=== PATIENT | female | born 1990 | race Caucasian/White ===

== ENCOUNTER 2019-03-30 00:12 | Inpatient (IN) | payer OTHER ==
[~2019-03-30] VITALS: Ht 175.3 cm; Wt 100.0 kg
[~2019-03-30 00:12] MED LIST: PRENATA CHEWAB1 EACH PO; VITAMIN B COMP1 EACH PO
[2019-03-30] MEDS ORDERED: IRON 100 PLUS1 EACH PO (00:50)
--- NOTE | 2019-03-30 10:18 | PR ---
[facility] [address] [facility] [place] [facility] [place], [place] [address] Signed Progress Notes IP Datetime Report Generated by CPN: 03/30/2019 10:18 PROGRESS NOTES: [id number] Impression: Reassuring heart rate Procedures: Artificial ROM; Sterile Vag Exam Plan: Continue present management Informed Consent Obtain: Induction of Labor; Risks, Benefits and Alternatives Discussed VITAL SIGNS: [id number] Vital Signs: Reviewed VS Notable Details: intermittent HTN EXAM: [id number] Dilatation: 1.5 Effacement: 70 Station: -2 Uterine Contractions: q 3 to 4 min MEMBRANES: [id number] Membrane Status: Intact ROM Note: AROM with moderate clear fluid. Comments: Comfortable but feeling her contractions some. Will continue. Fetus A: [id number] FHR Baseline: 130 Variability: Moderate 6-25bpm Accelerations: 15X15 Decelerations: None FHR Category: Category I Presentation: Vertex Comments on Fetus A: No evidence of metabolic acidosis Fetus B: [id number] Signing Physician: Amrita Frank MD Copies: ~ *Electronically Signed* 03/30/19 1018 AMRITA FRANK MD PATIENT NAME: BILLIE BALDERRAMA PROGRESS NOTE DATE OF : 89 PHYSICIAN: AMRITA FRANK MD RPT #: [id number] REPORT IS CONFIDENTIAL AND NOT TO BE RELEASED WITHOUT AUTHORIZATION
--- NOTE | 2019-03-31 08:49 | PR ---
[facility] [address] [facility] [place], [place] [address] Signed PP Progress Notes Datetime Report Generated by CPN: 03/31/2019 08:49 SUBJECTIVE: [id number] Pain: Within normal limits Vital Signs: [id number] Vital Signs: Reviewed Notable Details: occ mild HTN EXAM: [id number] Cardiovascular: Not Done Respiratory: Not Done Abdomen/Uterus: Abnormal Lochia: Normal Vulva/Perineum: Not Done Breasts: Not Done CVA Tenderness: Not Done Extremities: Normal Incision: Not Applicable Progress: Normal Exam Comments: Fundus firm, NT @ U-1. H/H 10.4/30.3, WBC 14.3, plat 164k IMPRESSION/PLAN/PROCEDURES: [id number] Impression: Normal progression Plan: Discharge Procedures: None Progress Notes: Doing well. She desires D/C later today. BPs have been reasonable since delivery. Signing Physician: Amrita Frank MD Copies: ~ *Electronically Signed* 03/31/19 0849 AMRITA FRANK MD PATIENT NAME: BILLIE BALDERRAMA YOBANY PROGRESS NOTE DATE OF : 89 PHYSICIAN: AMRITA FRANK MD RPT #: [id number] REPORT IS CONFIDENTIAL AND NOT TO BE RELEASED WITHOUT AUTHORIZATION
== END 2019-03-31 16:50 | disposition home or self-care (01) | DRG 807 ==
LOC: FBC 00:12
PROVIDERS: ADMIT Obstetrics & Gynecology
PROC: 10E0XZZ Delivery of Products of Conception, External Approach (ICD-10-PCS; principal; 2019-03-30)
PROC: 0UQMXZZ Repair Vulva, External Approach (ICD-10-PCS; 2019-03-30)
PROC: 10907ZC Drainage of Amniotic Fluid, Therapeutic from Products of Conception, Via Natural or Artificial Opening (ICD-10-PCS; 2019-03-30)
PROC: 3E0P7VZ Introduction of Hormone into Female Reproductive, Via Natural or Artificial Opening (ICD-10-PCS; 2019-03-30)
DX: O14.04 Mild to moderate pre-eclampsia, complicating childbirth (principal); Z37.0 Single live birth; Z3A.37 37 weeks gestation of pregnancy; O69.81X0 Labor and delivery complicated by cord around neck, without compression, not applicable or unspecified; O71.82 Other specified trauma to perineum and vulva
CPT/HCPCS: 36415; 82565; 82570; 84156; 84450; 84520; 84550; 85025; 85027; A9270; J2590